=== PATIENT | female | born 1965 | race Caucasian/White ===

== ENCOUNTER → 2020-11-28 13:57 | Outpatient (CLI) | payer MEDICAID, SELFPAY ==
[2020-11-28 15:05] LABS: Amphetamine/Metha Screen,Urine Negative ng/ml (<1000); Cannabinoid Screen,Urine Negative ng/ml (<50)
[2020-11-28 15:06] LABS: Barbiturates Screen,Urine Negative ng/ml (<200); Benzodiazepines Screen,Urine Negative ng/ml (<200)
[2020-11-28 15:07] LABS: Cocaine Screen,Urine Negative ng/ml (<300)
[2020-11-28 15:08] LABS: Methadone Screen,Urine Negative ng/ml (<300); Opiate Screen,Urine Negative ng/ml (<300)
[2020-11-28 15:09] LABS: Phencyclidine Screen,Urine Negative ng/ml (<25)
== END ==
PROVIDERS: Visit Provider Emergency Medicine
DX: M54.5 Low back pain (principal)
CPT/HCPCS: 80305

== ENCOUNTER → 2020-12-19 14:25 | Outpatient (CLI) | payer MEDICAID, SELFPAY ==
--- NOTE | 2020-12-19 14:25 | CA_ITS ---
APPROVED REPORT EXAM: Comprehensive 2D, Doppler, and color-flow Echocardiogram Manager Relationship: HUAN Rubio, RVS Ht: 5 ft 4 in Wt: 143lbs BSA: 1.70 HR: 89 bpm BP: 126/80 mmHg Rhythm: PVC's Indications: Cardiac arrythmia, murmurs, COPD, smoker, anxiety, s/p left mastectomy w/chemotherapy Echo Enhancing Agent Comments: Technically limited acoustic windows due to patient pain intolerance to left chest 2D Dimensions IVSd 0.90 cm LVEF (Visual) 81.90 % PWd 0.85 cm LA Volume 55.80 mL LVDd 4.12 cm LA Volume Index 32.80 mL/m2 (M/F) 16-34 LVDs 2.05 cm Aortic Root 2.72 cm Left Atrium 2.78 cm LVOT 2.05 cm (M/F) 1.5-2.5 M-Mode Dimensions LA Diam 3.88 cm (1.9-4.0) LVDd 5.16 cm (3.5-5.7) Ao Diam 2.54 cm (2.0-3.7) LVDs 3.47 cm (3.5-5.7) EF (Teich) 60.80% EPSs 1.19 cm FS 32.80% EDV (Teich) 127.20 mL TAPSE 1.78 (<1.7) ESV (Teich) 49.80 mL LV Diastology E Decel Time 150.00 (160-240 msec) E/A Ratio 0.89 MED E' 11.30 (< 7 cm/sec) MED A' 11.60 cm/s E'/MED E' Ratio 13.90 (>14) LAT E' 12.70 (<10 cm/sec) LAT A' 9.50 cm/s E/LAT E' Ratio 12.37 (>14) Aortic Valve LVOT Max 90.00 (70-110 cm/s) LVOT VTI 20.33 cm AoV Peak Kuldeep. 210.00 (50-130 cm/s) AO Peak GR. 17.70 mmHg AO Mean GR. 8.00 (<5 mmHg) AO VTI 43.19 (18-25 cm) LORRIE (VTI) 1.55 (2.5-4.5 cm2) Mitral Valve MV A Velocity 176.00 (40-130 cm/s) E/A Ratio 0.89 MV Decel. Time 150.00 (160-240 ms) Pulmonary Valve PV Peak Velocity 87.00 (50-150 cm/s) Tricuspid Valve TR P. Velocity 452.00 cm/s RAP Estimate 10.00 mmHg RVSP 91.90 mmHg Left Ventricle Left atrium is mildly enlarged, left ventricle is normal size, there is no concentric left ventricular hypertrophy, visually estimated ejection fraction 55% with no regional wall motion abnormality, diastolic parameters are within normal range. Right Ventricle Right atrium and right ventricle mildly enlarged with normal contractility. Aortic Valve Aortic valve is minimally thickened and fibrosed, there is no aortic stenosis or aortic insufficiency. Mitral Valve Mitral valve leaflets are grossly normal, there is mild mitral regurgitation. Tricuspid Valve Tricuspid grossly normal, there is mild tricuspid regurgitation, calculated right ventricular systolic pressure is 31 mmHg assuming right atrial pressure 10 mmHg. Pulmonic Valve Pulmonic valve is poorly visualized. There is mild pulmonic insufficiency. Great Vessels Aortic root is normal size. Pericardium No significant pericardial effusion noted. Conclusion 1. Mild biatrial normal, normal left ventricular size, preserved left ventricular systolic function, visually estimated ejection fraction 55% with no regional wall motion abnormality, diastolic parameters are within normal range. 2. Mild mitral and tricuspid regurgitation, calculated right ventricular systolic pressure 31 mmHg assuming right atrial pressure 10 mmHg 3. No significant pericardial effusion noted. Electronically signed by : Archie Conrad, 12/19/2020 18:43:58
== END ==
PROVIDERS: PCP Emergency Medicine; Visit Provider Emergency Medicine
DX: R01.1 Cardiac murmur, unspecified (principal)
CPT/HCPCS: 93306

== ENCOUNTER → 2021-01-04 06:48 | Outpatient (CLI) | payer MEDICAID, SELFPAY ==
--- NOTE | 2021-01-04 06:49 | CA_ITS ---
APPROVED REPORT [place]: JACQUES/ISMAEL Laterality: Bilateral Study Quality: Excellent Indications: dizziness, Bilateral Bruit Risk Factors Hypertension: Smoking Doppler Spectral Velocity Analysis ECA (R) 86.80/23.20 cm/s ECA (L) 107.00/25.40 cm/s dICA (R) 101.10/36.00 cm/s dICA (L) 116.90/50.70 cm/s Jocelin (R) 107.70/43.40 cm/s Jocelin (L) 77.70/30.20 cm/s pICA (R) 74.10/29.20 cm/s pICA (L) 69.30/23.10 cm/s dCCA (R) 70.30/26.90 cm/s dCCA (L) 74.80/26.20 cm/s pCCA (R) 95.10/29.10 cm/s pCCA (L) 84.50/28.40 cm/s Vert (R) 66.00/17.10 cm/s Vert (L) 69.30/21.80 cm/s ICA/CCA 1.50 ICA/CCA 1.50 Findings Duplex evaluation demonstrates stenosis of the right proximal internal carotid artery in the range of 20-49%. Duplex evaluation demonstrates stenosis of the left proximal internal carotid artery in the range of 20-49%. Duplex evaluation demonstrates antegrade flow of the bilateral Vertebral Arteries. Conclusion Duplex evaluation demonstrates stenosis of the right proximal internal carotid artery in the range of 20-49%. Duplex evaluation demonstrates stenosis of the left proximal internal carotid artery in the range of 20-49%. Duplex evaluation demonstrates antegrade flow of the bilateral Vertebral Arteries. Electronically signed by : Kamlesh Croft MD 01/04/2021 15:23:35
--- NOTE | 2021-01-04 06:49 | NM_ITS ---
APPROVED REPORT Exam: Nuclear Stress Test Indication: chest pain..short of breath..fatigue Patient Location: Outpatient Stress Tech: Rosana PASTRANA Tech:Naa RainTRACI young RT(R)(N) Ht: 5 ft 4 in Wt: 143 lbs Bra Size: 32 b HR: 62 bpm BP: 155/91 mmHg BSA: 1.70 m2 BMI: 24.5 History: chest pain..short of breath..fatigue Procedure: Patient received a 0.4 mg of intravenous Lexiscan, resting heart rate 62 bpm, resting blood pressure 155/91 mmHg, with Lexiscan maximum heart rate achived was 83 bpm which is 85 % of the maximum predicted heart rate and blood pressure was 147/80 mmHg. With Lexiscan, patient denied any complaint of chest pain. Cardiac Stress and Resting SPECT Images: Cardiac Stress and Resting SPECT images were obtained using technetium 99m Myoview 33.0 mCi stress and 10.92 mCi at rest. Ejection fraction: 48% No fixed or reversible defects. Conclusion: Low ejection fraction with no ischemic changes. Electronically signed by : Kamlesh Croft MD 01/05/2021 14:27:01
--- NOTE | 2021-01-04 06:49 | CA_ITS ---
APPROVED REPORT Exam: Pharmacologic Technologist: Rosana New, Ht: 5 ft 4 in Wt: 142 lbs BSA: 1.69 m2 HR: 62 bpm BP: 155/91 mmHg Rhythm: NSR, normal Medical History Medical History: Smoking Medications: Omeprazole,,,,, Spiriva,,,,, Gabapentin,,,,, PERCOCET,,,,, ANoro,,,,, ONdanESETRAN,,,,, ANASTROZOLE,,,,, Cardiac Risk Factors: FHX of CAD Stress Test Details Test: LEXISCAN HR Resting HR: 65 bpm Max Heart Rate (APMHR): 163.680180 bpm Max HR Achieved: 85 bpm Target HR (85% APMHR): 138.601777 bpm % of APMHR: 52.15 Recovery HR: 79 bpm BP Resting BP: 155/91 mmHg Max BP: 155/91 mmHg Recovery BP: 152.0/87.0 mmHg ECG Resting ECG: NSR, normal Clinical Exercise duration: 04:01 min Highest Stage Achieved: Exercise capacity: 1.0 METs Stress ECG Conclusion During lexiscan pt experinced SOA, headache, stomach cramps, NO CP. Pt had occasional PVCs. No significant changes to ST- segment. Unremarkable lexiscan stress, myoview images reported separately. Electronically signed by : Olvin Moscoso, 01/05/2021 12:46:05
== END ==
PROVIDERS: PCP Emergency Medicine; Visit Provider Internal Medicine Cardiovascular Disease
DX: R06.00 Dyspnea, unspecified (principal); R07.9 Chest pain, unspecified; R42 Dizziness and giddiness; J44.9 Chronic obstructive pulmonary disease, unspecified; K21.9 Gastro-esophageal reflux disease without esophagitis; Z72.0 Tobacco use; Z85.3 Personal history of malignant neoplasm of breast
CPT/HCPCS: 78452; 93017; 93880; A9502; J2785

== ENCOUNTER → 2021-01-18 09:08 | Outpatient (CLI) | payer MEDICAID, SELFPAY ==
[2021-01-18 10:27] LABS: NT Pro Brain Natriuretic Pep. 697 pg/mL (0-125)
== END ==
PROVIDERS: Visit Provider Internal Medicine Cardiovascular Disease
DX: R06.00 Dyspnea, unspecified (principal)
CPT/HCPCS: 36415; 83880

== ENCOUNTER → 2021-01-23 13:43 | Outpatient (CLI) | payer MEDICAID, SELFPAY ==
[2021-01-23 14:43] LABS: Amphetamine/Metha Screen,Urine Negative ng/ml (<1000); Barbiturates Screen,Urine Negative ng/ml (<200)
[2021-01-23 14:45] LABS: Benzodiazepines Screen,Urine Positive ng/ml (<200); Cannabinoid Screen,Urine Negative ng/ml (<50)
[2021-01-23 14:46] LABS: Cocaine Screen,Urine Negative ng/ml (<300)
[2021-01-23 14:47] LABS: Methadone Screen,Urine Negative ng/ml (<300); Opiate Screen,Urine Positive ng/ml (<300)
[2021-01-23 14:48] LABS: Phencyclidine Screen,Urine Negative ng/ml (<25)
== END ==
PROVIDERS: Visit Provider Emergency Medicine
DX: M54.16 Radiculopathy, lumbar region (principal)
CPT/HCPCS: 80305

== ENCOUNTER → 2021-01-29 14:22 | Outpatient (CLI) | payer MEDICAID, SELFPAY ==
--- NOTE | 2021-01-29 14:26 | CT_ITS ---
PROCEDURE: CT LUNG SCREENING CLINICAL INDICATION: H/O NICOTINE DEPENDENCE Current smoker 67.5 pack year smoking history Hx of breast cancer, copd, emphysema, chf No prior COMPARISON: No exams were available for comparison TECHNIQUE: The exam was performed on a GE Light Speed [address] scanner using 2.90 mGy CTDI. A low dose helical CT CHEST was performed on a multi-detector scanner. All CT scans at the facility use one or more dose reduction, viz: automated exposure control, ma/kV adjustment per patient size (including targeted exams where dose is matched to indication, i.e. head), or iterative reconstruction technique. The LDCT was performed in a facility that meets the criteria for the screening program. Data regarding this exam was submitted to ACR which is an approved registry. The order for this exam indicates that it came as a result of a lung cancer screening counseling shard decision-making visit that included all the elements required of such a visit including smoking cessation. The radiologist interpreting this exam meets the CMS criteria for the LDCT lung cancer screening program. The exam is reported using the Lung-RADS classification scale and reported to the ACR registry. NOTE: This study was performed for the specific purposes of lung cancer screening and is not an alternative to diagnostic chest CT. RADIATION DOSE: CTDI vol(CT dose Index-volume) = 2.90mG DLP (Dose Length Product) = 96.38 mGcm FINDINGS: There is dense consolidation the left with air bronchograms. Paraseptal emphysematous changes are present with COPD. There is some increased density in the left suprahilar region possibly due to unopacified vessels. Fibrotic changes are present in the lingula anteriorly. No effusions apparent. Coronary artery calcifications noted. No obvious mediastinal or hilar adenopathy. No effusions. Prior left mastectomy IMPRESSION: Lung-RADS Category 3 Probably Benign. Dense consolidation in the left apex age indeterminate. Follow-up: [address] Chest with contrast. Suggest comparison with old studies if available. No old images of the chest are available at this institution. Dictated by: Kamlesh Croft MD 02/05/2021 06:29 Kamlesh Croft MD in [place] 02/05/2021 06:29
== END ==
PROVIDERS: PCP Emergency Medicine; Visit Provider Internal Medicine Cardiovascular Disease
DX: Z87.891 Personal history of nicotine dependence (principal); Z12.2 Encounter for screening for malignant neoplasm of respiratory organs; R06.02 Shortness of breath
CPT/HCPCS: 71271

== ENCOUNTER → 2021-02-15 10:26 | Outpatient (CLI) | payer MEDICAID, SELFPAY ==
--- NOTE | 2021-02-15 10:29 | CA_ITS ---
APPROVED REPORT Bilateral Lower Extremity Venous Study for DVT. Machine Setter Supervisor: Bee Leigh RVT Indications Lower Extremity Pain: Bilateral Current Smoker History of Smoking bilateral leg pain Risk Factors Current Smoker Vein Imaging CFV (R): compressive, spontaneous, phasic, augmentation FEM (R): compressive, spontaneous, phasic, augmentation POP (R): compressive, spontaneous, phasic, augmentation PTV (R): Compressible GSV (R): Compressible Peroneals (R):Compressible GAS (R): Compressible CFV (L): compressive, spontaneous, phasic, augmentation FEM (L): compressive, spontaneous, phasic, augmentation POP (L): compressive, spontaneous, phasic, augmentation PTV (L): Compressible GSV (L): Compressible Peroneals (L):Compressible GAS (L): Compressible Findings Study suggests no evidence of DVT of the bilateral lower extremites. Study suggests a thrombus in a superficial vein in the medial left ankle. Conclusion Study suggests no evidence of DVT of the bilateral lower extremites. Study suggests a thrombus in a superficial vein in the medial left ankle. Critical Notification Physician Notified Date: 02/15/2021 Time: 11:07 Physician Name: SACHIN Electronically signed by : Shasta Sweet, 02/16/2021 11:59:36
== END ==
PROVIDERS: PCP Emergency Medicine; Visit Provider Physician Assistant
DX: M79.604 Pain in right leg (principal); M79.605 Pain in left leg
CPT/HCPCS: 93970

== ENCOUNTER → 2021-02-20 11:37 | Outpatient (CLI) | payer MEDICAID, SELFPAY | PROVIDERS: PCP Emergency Medicine; Visit Provider Internal Medicine Cardiovascular Disease | DX: I70.213 Atherosclerosis of native arteries of extremities with intermittent claudication, bilateral legs (principal) ==

== ENCOUNTER → 2021-03-21 15:17 | Outpatient (CLI) | payer MEDICAID, SELFPAY ==
[2021-03-21 16:04] LABS: Amphetamine/Metha Screen,Urine Negative ng/ml (<1000)
[2021-03-21 16:05] LABS: Barbiturates Screen,Urine Negative ng/ml (<200)
[2021-03-21 16:06] LABS: Benzodiazepines Screen,Urine Positive ng/ml (<200); Cannabinoid Screen,Urine Negative ng/ml (<50)
[2021-03-21 16:07] LABS: Cocaine Screen,Urine Negative ng/ml (<300); Methadone Screen,Urine Negative ng/ml (<300)
[2021-03-21 16:08] LABS: Opiate Screen,Urine Negative ng/ml (<300)
[2021-03-21 16:09] LABS: Phencyclidine Screen,Urine Negative ng/ml (<25)
== END ==
PROVIDERS: Visit Provider Emergency Medicine
DX: Z79.899 Other long term (current) drug therapy (principal)
CPT/HCPCS: 80305

== ENCOUNTER → 2021-03-29 13:21 | Outpatient (CLI) | payer MEDICAID, SELFPAY ==
[2021-03-29 13:42] LABS: Amphetamine/Metha Screen,Urine Negative ng/ml (<1000)
[2021-03-29 13:43] LABS: Barbiturates Screen,Urine Negative ng/ml (<200)
[2021-03-29 13:44] LABS: Benzodiazepines Screen,Urine Positive ng/ml (<200); Cannabinoid Screen,Urine Negative ng/ml (<50)
[2021-03-29 13:45] LABS: Cocaine Screen,Urine Negative ng/ml (<300); Methadone Screen,Urine Negative ng/ml (<300)
[2021-03-29 13:46] LABS: Opiate Screen,Urine Positive ng/ml (<300)
[2021-03-29 13:47] LABS: Phencyclidine Screen,Urine Negative ng/ml (<25)
== END ==
PROVIDERS: Visit Provider Emergency Medicine
DX: M10.9 Gout, unspecified (principal)
CPT/HCPCS: 80305

== ENCOUNTER → 2021-04-10 12:57 | Outpatient (CLI) | payer MEDICAID, SELFPAY ==
--- NOTE | 2021-04-10 13:13 | CT_ITS ---
Procedure: CT ANGIO ABDOMEN/FEMORAL CLINICAL HISTORY: runoff of LE's Bilateral leg pain COMPARISON: No exams were available for comparison TECHNIQUE: IV Contrast: 100ml Isovue 370 Axial images obtained with sagittal and coronal reformats. All CT scans at the facility use one or more dose reduction, viz: automated exposure control, ma/kV adjustment per patient size (including targeted exams where dose is matched to indication, i.e. head), or iterative reconstruction technique. FINDINGS: Abdominal aorta: Scattered atheromatous plaque. No aneurysm or significant stenosis. The celiac artery has an unremarkable appearance. There is approximately 30-40 percent stenosis of the proximal aspect of the superior mesenteric artery with mild poststenotic dilatation. The KEEGAN is intact. Unremarkable appearing renal arteries Iliac arteries: Calcific plaque is present bilaterally. No significant stenosis. Proximally forty to 50 percent stenosis of the proximal right common iliac and 30-40 percent stenosis of proximal left common iliac. External iliacs have an unremarkable appearance. Right lower extremity runoff: 20 percent stenosis from eccentric plaque in the right common femoral artery. The SFA on the right is widely patent. Right popliteal is unremarkable. Trifurcation vessels unremarkable with 3 vessel runoff to ankle with plantar arch intact. Left lower extremity runoff: Mild atheromatous changes of the common femoral artery with 20 percent narrowing. Minimal eccentric plaque in the distal left SFA with 20 percent narrowing. The left popliteal and trifurcation vessels are unremarkable with 3 vessel runoff to the ankle with patent plantar arch Nonvascular findings: IMPRESSION: 1. Mild atheromatous changes of the aortic iliac vessels with calcific plaque. 30-40 percent stenosis of the proximal common iliacs bilaterally.. No high-grade stenotic lesions evident. Unremarkable bilateral lower extremity runoff. 2. 50 percent stenosis of the proximal superior mesenteric artery. Dictated by: Kamlesh Croft MD 04/12/2021 10:30 Kamlesh Croft MD in [place] 04/12/2021 10:30
[2021-04-10 14:18] LABS: Anion Gap 12.4 mEq/L (5-15); Blood Urea Nitrogen 13 mg/dl (7-17); Calcium 8.9 mg/dl (8.4-10.2); Carbon Dioxide 30 mmol/L (22.0-30.0); Chloride 100 mmol/L (98-107); Estimated Glomerular Filt Rate 103 ml/min (>60); GFR (African American) 124 ML/MIN (>60); Glucose 97 mg/dl (74-100); Potassium 4.4 mmoL/L (3.5-5.1); Sodium 138 mmol/L (136-145)
[2021-04-10 14:27] LABS: NT Pro Brain Natriuretic Pep. 132 pg/mL (0-125)
== END ==
PROVIDERS: Physician Assistant; PCP Emergency Medicine; Visit Provider Internal Medicine Cardiovascular Disease
DX: R06.00 Dyspnea, unspecified (principal); R42 Dizziness and giddiness; I25.10 Atherosclerotic heart disease of native coronary artery without angina pectoris; I25.84 Coronary atherosclerosis due to calcified coronary lesion; R05 Cough; I10 Essential (primary) hypertension; I73.9 Peripheral vascular disease, unspecified; I82.812 Embolism and thrombosis of superficial veins of left lower extremity; J44.9 Chronic obstructive pulmonary disease, unspecified; K21.9 Gastro-esophageal reflux disease without esophagitis; M79.604 Pain in right leg; M79.605 Pain in left leg; Z72.0 Tobacco use; Z85.3 Personal history of malignant neoplasm of breast
CPT/HCPCS: 36415; 75635; 80048; 83880; Q9967

== ENCOUNTER → 2021-05-14 14:09 | Outpatient (CLI) | payer MEDICAID, SELFPAY ==
[2021-05-14 15:00] LABS: Amphetamine/Metha Screen,Urine Negative ng/ml (<1000)
[2021-05-14 15:01] LABS: Barbiturates Screen,Urine Negative ng/ml (<200)
[2021-05-14 15:02] LABS: Benzodiazepines Screen,Urine Positive ng/ml (<200); Cannabinoid Screen,Urine Negative ng/ml (<50)
[2021-05-14 15:03] LABS: Cocaine Screen,Urine Negative ng/ml (<300)
[2021-05-14 15:04] LABS: Methadone Screen,Urine Negative ng/ml (<300); Opiate Screen,Urine Positive ng/ml (<300)
[2021-05-14 15:05] LABS: Phencyclidine Screen,Urine Negative ng/ml (<25)
== END ==
PROVIDERS: Visit Provider Emergency Medicine
DX: G62.9 Polyneuropathy, unspecified (principal); Z79.899 Other long term (current) drug therapy
CPT/HCPCS: 80305

== ENCOUNTER → 2021-06-01 08:55 | Outpatient (CLI) | payer MEDICAID, SELFPAY ==
[2021-06-01 09:33] LABS: Basophils # 0.1 K/mm3 (0-0.2); Basophils % 1.5 % (0.1-2.0); Eosinophils # 0.3 K/mm3 (0.0-0.4); Eosinophils % 5.5 % (0.1-12.0); Hematocrit 48.5 % (37.0-47.0); Hemoglobin 15.4 g/dL (12.2-16.2); Lymphocytes # 1.4 K/mm3 (0.7-4.5); Lymphocytes % 30.3 % (10-50); Mean Corpuscular HGB Conc 31.8 g/dL (31.8-35.4); Mean Corpuscular Hemoglobin 30.8 pg (27.0-31.2); Mean Corpuscular Volume 96.9 fl (81-99); Mean Platelet Volume 8.2 fl (7.4-10.4); Monocytes # 0.2 K/mm3 (0.1-1.0); Monocytes % 4.5 % (1.7-9.3); Neutrophils # 2.7 K/mm3 (1.8-7.8); Neutrophils % 58.2 % (37.0-80.0); Platelet Count 203 K/mm3 (142-424); Red Cell Distribution Width 13.9 % (11.5-17.5); White Blood Count 4.6 K/mm3 (4.8-10.8)
[2021-06-01 10:07] LABS: Alanine Aminotransferase 15 U/L (12-78); Albumin Level 4.5 g/dl (3.5-5.0); Albumin/Globulin Ratio 1.6 (1.1-1.8); Alkaline Phosphatase 80 U/L (38-126); Anion Gap 13.9 mEq/L (5-15); Aspartate Amino Transferase 27 U/L (14-36); Bilirubin,Total 0.3 mg/dl (0.2-1.3); Blood Urea Nitrogen 6 mg/dl (7-17); Calcium 9.4 mg/dl (8.4-10.2); Carbon Dioxide 28 mmol/L (22.0-30.0); Chloride 103 mmol/L (98-107); Chol/HDL Ratio 1.8 (1-3.5); Cholesterol 170 mg/dl (140-200); Estimated Glomerular Filt Rate 127 ml/min (>60); GFR (African American) 153 ML/MIN (>60); Globulin 2.8 g/dL (1.3-3.2); Glucose 124 mg/dl (74-100); HDL Cholesterol 94 mg/dl (40-60); Potassium 3.9 mmoL/L (3.5-5.1); Sodium 141 mmol/L (136-145); Total Protein,Serum 7.3 g/dl (6.3-8.2); Triglycerides 85 mg/dl (30-150); VLDL Cholesterol 17 mg/dL (0-40)
[2021-06-01 10:18] LABS: Direct LDL Cholesterol 54.72 mg/dL (100-129)
[2021-06-01 10:23] LABS: T4 (Thyroxine) 8.4 ug/dl (5.53-11.0)
[2021-06-01 10:24] LABS: 25-OH Vitamin D, Total 40.2 ng/mL (30-100)
[2021-06-01 10:37] LABS: Thyroid Stimulating Hormone 0.91 uIU/mL (0.465-4.68)
== END ==
PROVIDERS: Visit Provider Emergency Medicine
DX: I10 Essential (primary) hypertension (principal); Z79.899 Other long term (current) drug therapy
CPT/HCPCS: 36415; 80053; 80061; 82306; 84436; 84443; 85025

== ENCOUNTER → 2021-07-13 18:30 | Outpatient (CLI) | payer MEDICAID, SELFPAY ==
[2021-07-13 19:45] LABS: Amphetamine/Metha Screen,Urine Negative ng/ml (<1000)
[2021-07-13 19:46] LABS: Barbiturates Screen,Urine Negative ng/ml (<200)
[2021-07-13 19:47] LABS: Benzodiazepines Screen,Urine Positive ng/ml (<200); Cannabinoid Screen,Urine Negative ng/ml (<50)
[2021-07-13 19:48] LABS: Cocaine Screen,Urine Negative ng/ml (<300)
[2021-07-13 19:49] LABS: Methadone Screen,Urine Negative ng/ml (<300); Opiate Screen,Urine Positive ng/ml (<300)
[2021-07-13 19:50] LABS: Phencyclidine Screen,Urine Negative ng/ml (<25)
== END ==
PROVIDERS: Visit Provider Emergency Medicine
DX: Z79.899 Other long term (current) drug therapy (principal)
CPT/HCPCS: 80305

== ENCOUNTER → 2021-09-12 14:49 | Outpatient (CLI) | payer MEDICAID, SELFPAY ==
[2021-09-12 13:43] LABS: Amphetamine/Metha Screen,Urine Negative ng/ml (<1000); Barbiturates Screen,Urine Negative ng/ml (<200)
[2021-09-12 13:44] LABS: Benzodiazepines Screen,Urine Positive ng/ml (<200); Cannabinoid Screen,Urine Negative ng/ml (<50)
[2021-09-12 13:45] LABS: Cocaine Screen,Urine Negative ng/ml (<300)
[2021-09-12 13:46] LABS: Methadone Screen,Urine Negative ng/ml (<300); Opiate Screen,Urine Positive ng/ml (<300)
[2021-09-12 13:47] LABS: Phencyclidine Screen,Urine Negative ng/ml (<25)
== END ==
PROVIDERS: Visit Provider Emergency Medicine
DX: Z79.899 Other long term (current) drug therapy (principal)
CPT/HCPCS: 80305

== ENCOUNTER → 2021-11-06 16:25 | Outpatient (CLI) | payer MEDICAID, SELFPAY ==
[2021-11-06 18:40] LABS: Amphetamine/Metha Screen,Urine Negative ng/ml (<1000)
[2021-11-06 18:41] LABS: Barbiturates Screen,Urine Negative ng/ml (<200)
[2021-11-06 18:42] LABS: Benzodiazepines Screen,Urine Positive ng/ml (<200); Cannabinoid Screen,Urine Negative ng/ml (<50)
[2021-11-06 18:43] LABS: Cocaine Screen,Urine Negative ng/ml (<300); Methadone Screen,Urine Negative ng/ml (<300)
[2021-11-06 18:44] LABS: Opiate Screen,Urine Positive ng/ml (<300)
[2021-11-06 18:45] LABS: Phencyclidine Screen,Urine Negative ng/ml (<25)
== END ==
PROVIDERS: Visit Provider Emergency Medicine
DX: Z79.899 Other long term (current) drug therapy (principal)
CPT/HCPCS: 80305

== ENCOUNTER → 2022-01-04 14:20 | Outpatient (CLI) | payer MEDICAID, SELFPAY ==
[2022-01-04 16:00] LABS: Amphetamine/Metha Screen,Urine Negative ng/ml (<1000)
[2022-01-04 16:02] LABS: Barbiturates Screen,Urine Negative ng/ml (<200)
[2022-01-04 16:03] LABS: Benzodiazepines Screen,Urine Positive ng/ml (<200); Cannabinoid Screen,Urine Positive ng/ml (<50)
[2022-01-04 16:05] LABS: Opiate Screen,Urine Positive ng/ml (<300)
[2022-01-04 16:06] LABS: Cocaine Screen,Urine Negative ng/ml (<300); Methadone Screen,Urine Negative ng/ml (<300)
[2022-01-04 16:08] LABS: Phencyclidine Screen,Urine Negative ng/ml (<25)
== END ==
PROVIDERS: Visit Provider Emergency Medicine
DX: Z79.899 Other long term (current) drug therapy (principal)
CPT/HCPCS: 80305

== ENCOUNTER → 2022-01-11 09:37 | Outpatient (CLI) | payer MEDICAID, SELFPAY ==
--- NOTE | 2022-01-11 09:38 | MR_ITS ---
FINAL REPORT CLINICAL HISTORY: LOWER BACK PAIN, STIFFNESS, NO INJURY FINDINGS: Multiplanar MR imaging of the lumbar spine was performed without contrast. On the sagittal T2-weighted images, disc degeneration is seen at multiple levels. There is mild retrolisthesis of L5 on S1. There is no evidence of fracture. The conus has an unremarkable appearance. There is a small cyst in the mid sacral spinal canal. L1-2: There is no significant canal stenosis or neural foraminal narrowing. L2-3: An annular bulge is present. There is no significant canal stenosis or neural foraminal narrowing. L3-4: Annular bulge is present. There is a small central disc protrusion. There is no significant canal stenosis or neural foraminal narrowing. L4-5: An annular bulge and facet arthropathy are present. There is a small central disc protrusion mild bilateral neural foraminal narrowing. L5-S1: An annular bulge is present. There is a central disc protrusion moderate bilateral neural foraminal narrowing. IMPRESSION: Multilevel degenerative disc disease and spondylosis. Central disc protrusions from L3-4 through L5-S1. Reviewed, Interpreted and Dictated by Roque Briggs III, MD Transcribed by Elizabeth Ceja Authenticated and . [facility]
== END ==
PROVIDERS: Visit Provider Emergency Medicine
DX: G95.19 Other vascular myelopathies (principal); M54.16 Radiculopathy, lumbar region
CPT/HCPCS: 72148; 76376

== ENCOUNTER → 2022-03-06 19:13 | Outpatient (CLI) | payer MEDICAID, SELFPAY ==
[2022-03-06 16:13] LABS: Benzodiazepines Screen,Urine Positive ng/ml (<200)
[2022-03-06 16:14] LABS: Amphetamine/Metha Screen,Urine Negative ng/ml (<1000); Barbiturates Screen,Urine Negative ng/ml (<200)
[2022-03-06 16:15] LABS: Cannabinoid Screen,Urine Positive ng/ml (<50); Cocaine Screen,Urine Negative ng/ml (<300)
[2022-03-06 16:16] LABS: Methadone Screen,Urine Negative ng/ml (<300)
[2022-03-06 16:17] LABS: Opiate Screen,Urine Positive ng/ml (<300); Phencyclidine Screen,Urine Negative ng/ml (<25)
== END ==
PROVIDERS: PCP Emergency Medicine; Visit Provider Emergency Medicine
DX: M54.16 Radiculopathy, lumbar region (principal)
CPT/HCPCS: 80305

== ENCOUNTER → 2022-03-27 10:10 | Outpatient (POV) | payer MEDICAID, SELFPAY ==
[2022-03-27 10:29] VITALS: BP 170/84; PULSE 81; RESP 20; TEMP 36.6; O2SAT 96; BMI 18.8
--- NOTE | 2022-03-27 17:36 | EXP.PAIN.OV ---
HPI Data of Consult Patient: new to practice Consult date: 03/27/22 Requesting Physician: Danita Dixon APRN Primary Care Provider: Max Contreras MD Consult Narrative Reason for consult: Low back pain, bilateral leg pain History of present illness: Ms. Aaron is a 57 year old female who presents today as a new patient. She is a referral from Max Contreras. Patient rates her pain a 9 out of 10 and states the pain is primarily in her low back that radiates into bilateral extremities. She describes this as a aching sensation that was worse with increased activity. Patient states she has numbness and tingling in bilateral legs. Patient denies any trauma or injury to the site. She states she has had these issues for years. Patient does use [id number] Tylenol and ibuprofen however she gets no relief of her symptoms. She is also tried [id number] topicals however these do not provide any additional aid. She is managed with gabapentin 800 mg 3 times a day, clonazepam 0.5 mg twice a day and Percocet 10 mg 3 times a day all written by Dr. Contreras. Patient denies any side effects from these medications. She states these medications do adequately help manage her pain. Patient states she has not seen physical therapy in the past. She states she is scheduled to see neurosurgery next month. Patient also has PET scan scheduled for her lungs. Her Héctor is [id number]. Its been reviewed and appropriate. CC: Danita Dixon APRN [facility] Medical History (Updated 03/27/22 @ 17:42 by Danita Dixon APRN) Breast cancer Cataract Chest pain Claudication COPD (chronic obstructive pulmonary disease) Coronary artery disease Dizziness Dyspnea Hyperlipidemia Hypertension Superficial thrombosis of left lower extremity Surgical History (Updated 03/27/22 @ 10:35 by Helga Delong RN) History of History of left mastectomy History of surgical removal of intestinal structure Social History Smoking Status: Current every day smoker tobacco type: cigarettes packs per day: 1 alcohol intake: never substance use type: denies use current occupational status: disabled household members: family housing: house Review of Systems Review of Systems Review of systems:: pertinent systems reviewed and negative unless documented below Review of systems (narrative): Review of Systems: General: No recent weight changes, no fever, no sleep disturbances Respiratory: No cough, no shortness of air, no recurring pulmonary infections Cardiovascular/peripheral vascular: No chest pain, no palpitations, no edema, no shortness of breath Gastrointestinal: No new onset incontinence, normal bowel movements reported Genitourinary: No new onset incontinence Musculoskeletal: Low back pain, bilateral leg pain Psychiatric: [Normal mood/affect] Neurological: [Denies weakness in extremities], [denies balance issues] Meds Home Medications and Allergies Home Medications Medication Instructions Recorded Confirmed Type ondansetron 4 mg disintegrating 4 mg PO Q6H STOMACH 10/03/20 03/27/22 History tablet tiotropium bromide 2.5 2 puff inhalation DAILY PRN SOA #4 02/27/22 03/27/22 Rx mcg/actuation mist for inhalation grams (Spiriva Respimat) oxycodone-acetaminophen 10 mg-325 1 tab PO TID PRN pain #90 tabs 03/06/22 03/27/22 Rx mg tablet (Percocet) anastrozole 1 mg tablet See Rx Instructions .Route 03/27/22 03/27/22 History .COMPLEX CHEMO aspirin 325 mg tablet,delayed See Rx Instructions .Route 03/27/22 03/27/22 History release .COMPLEX Blood thinner clonazepam 0.5 mg tablet (Klonopin) 0.5 mg PO BID NERVES 03/27/22 03/27/22 History gabapentin 800 mg tablet 800 mg PO TID Pain 03/27/22 03/27/22 History losartan 25 mg tablet 25 mg PO DAILY BLOOD PRESSURE 03/27/22 03/27/22 History omeprazole 40 mg capsule,delayed See Rx Instructions .Route 03/27/22 03/27/22 History release .COMPLEX STOMACH rosuvastatin 10 mg tablet See
== END ==
PROVIDERS: PCP Emergency Medicine; Visit Provider Nurse Practitioner Family
DX: M51.16 Intervertebral disc disorders with radiculopathy, lumbar region (principal); M48.061 Spinal stenosis, lumbar region without neurogenic claudication; M47.26 Other spondylosis with radiculopathy, lumbar region
CPT/HCPCS: 99202; G0463

== ENCOUNTER → 2022-05-03 11:08 | Outpatient (CLI) | payer MEDICAID, SELFPAY ==
[2022-05-03 15:38] LABS: Amphetamine/Metha Screen,Urine Negative ng/ml (<1000)
[2022-05-03 15:39] LABS: Barbiturates Screen,Urine Negative ng/ml (<200)
[2022-05-03 15:40] LABS: Benzodiazepines Screen,Urine Positive ng/ml (<200)
[2022-05-03 15:41] LABS: Cannabinoid Screen,Urine Positive ng/ml (<50)
[2022-05-03 15:42] LABS: Cocaine Screen,Urine Negative ng/ml (<300); Methadone Screen,Urine Negative ng/ml (<300)
[2022-05-03 15:43] LABS: Opiate Screen,Urine Positive ng/ml (<300)
[2022-05-03 15:44] LABS: Phencyclidine Screen,Urine Negative ng/ml (<25)
== END ==
PROVIDERS: PCP Emergency Medicine; Visit Provider Emergency Medicine
DX: M47.816 Spondylosis without myelopathy or radiculopathy, lumbar region (principal)
CPT/HCPCS: 80305

== ENCOUNTER → 2022-07-01 10:48 | Outpatient (CLI) | payer MEDICAID, SELFPAY ==
[2022-07-01 14:45] LABS: Amphetamine/Metha Screen,Urine Negative ng/ml (<1000); Barbiturates Screen,Urine Negative ng/ml (<200)
[2022-07-01 14:46] LABS: Benzodiazepines Screen,Urine Positive ng/ml (<200)
[2022-07-01 14:47] LABS: Cannabinoid Screen,Urine Positive ng/ml (<50); Cocaine Screen,Urine Negative ng/ml (<300)
[2022-07-01 14:48] LABS: Methadone Screen,Urine Negative ng/ml (<300)
[2022-07-01 14:49] LABS: Opiate Screen,Urine Positive ng/ml (<300); Phencyclidine Screen,Urine Negative ng/ml (<25)
== END ==
PROVIDERS: PCP Emergency Medicine; Visit Provider Emergency Medicine
DX: Z79.899 Other long term (current) drug therapy (principal)
CPT/HCPCS: 80305

== ENCOUNTER → 2022-08-30 11:27 | Outpatient (CLI) | payer MEDICAID, SELFPAY ==
[2022-08-30 19:12] LABS: Amphetamine/Metha Screen,Urine Negative ng/ml (<1000); Benzodiazepines Screen,Urine Positive ng/ml (<200)
[2022-08-30 19:13] LABS: Barbiturates Screen,Urine Negative ng/ml (<200)
[2022-08-30 19:14] LABS: Cannabinoid Screen,Urine Positive ng/ml (<50); Cocaine Screen,Urine Negative ng/ml (<300)
[2022-08-30 19:15] LABS: Methadone Screen,Urine Negative ng/ml (<300); Opiate Screen,Urine Positive ng/ml (<300)
[2022-08-30 19:16] LABS: Phencyclidine Screen,Urine Negative ng/ml (<25)
== END ==
PROVIDERS: PCP Emergency Medicine; Visit Provider Emergency Medicine
DX: M47.816 Spondylosis without myelopathy or radiculopathy, lumbar region (principal)
CPT/HCPCS: 80305

== ENCOUNTER → 2022-10-22 16:00 | Outpatient (CLI) | payer MEDICAID, SELFPAY ==
[2022-10-22 19:51] LABS: Basophils # 0.2 K/mm3 (0-0.2); Basophils % 1.7 % (0.1-2.0); Eosinophils # 0.2 K/mm3 (0.0-0.4); Eosinophils % 2.7 % (0.1-12.0); Hematocrit 45.2 % (37.0-47.0); Hemoglobin 14.2 g/dL (12.2-16.2); Lymphocytes # 0.9 K/mm3 (0.7-4.5); Lymphocytes % 10.4 % (10-50); Mean Corpuscular HGB Conc 31.4 g/dL (31.8-35.4); Mean Corpuscular Hemoglobin 29.7 pg (27.0-31.2); Mean Corpuscular Volume 94.3 fl (81-99); Mean Platelet Volume 8.9 fl (7.4-10.4); Monocytes # 0.4 K/mm3 (0.1-1.0); Neutrophils # 7.3 K/mm3 (1.8-7.8); Neutrophils % 81.2 % (37.0-80.0); Platelet Count 239 K/mm3 (142-424); Red Blood Count 4.79 M/mm3 (4.20-5.40); White Blood Count 8.9 K/mm3 (4.8-10.8)
[2022-10-22 20:00] LABS: Alanine Aminotransferase 14 U/L (12-78); Albumin Level 4.4 g/dl (3.5-5.0); Albumin/Globulin Ratio 1.2 (1.1-1.8); Alkaline Phosphatase 113 U/L (38-126); Anion Gap 12.2 mEq/L (5-15); Aspartate Amino Transferase 26 U/L (14-36); Bilirubin,Total 0.5 mg/dl (0.2-1.3); Blood Urea Nitrogen 10 mg/dl (7-17); Calcium 8.8 mg/dl (8.4-10.2); Carbon Dioxide 29 mmol/L (22.0-30.0); Chloride 98 mmol/L (98-107); Chol/HDL Ratio 2.4 (1-3.5); Cholesterol 156 mg/dl (140-200); Estimated Glomerular Filt Rate 126 ml/min (>60); GFR (African American) 153 ML/MIN (>60); Globulin 3.6 g/dL (1.3-3.2); Glucose 113 mg/dl (74-100); HDL Cholesterol 66 mg/dl (40-60); Potassium 4.2 mmoL/L (3.5-5.1); Sodium 135 mmol/L (136-145); Triglycerides 91 mg/dl (30-150); VLDL Cholesterol 18 mg/dL (0-40)
[2022-10-22 20:11] LABS: Direct LDL Cholesterol 51.44 mg/dL (100-129)
[2022-10-22 20:13] LABS: Barbiturates Screen,Urine Negative ng/ml (<200); Benzodiazepines Screen,Urine Positive ng/ml (<200)
[2022-10-22 20:14] LABS: Amphetamine/Metha Screen,Urine Negative ng/ml (<1000)
[2022-10-22 20:15] LABS: 25-OH Vitamin D, Total 17.3 ng/mL (30-100); Cannabinoid Screen,Urine Positive ng/ml (<50); Cocaine Screen,Urine Negative ng/ml (<300)
[2022-10-22 20:16] LABS: Methadone Screen,Urine Negative ng/ml (<300)
[2022-10-22 20:17] LABS: Free T4 (Free Thyroxine) 1.38 ng/dl (0.78-2.19); Phencyclidine Screen,Urine Negative ng/ml (<25)
[2022-10-22 20:30] LABS: Thyroid Stimulating Hormone 1.09 uIU/mL (0.465-4.68)
[2022-10-22 21:16] LABS: Opiate Screen,Urine Positive ng/ml (<300)
== END ==
PROVIDERS: PCP Emergency Medicine; Visit Provider Emergency Medicine
DX: R53.83 Other fatigue (principal); E55.9 Vitamin D deficiency, unspecified; Z79.899 Other long term (current) drug therapy
CPT/HCPCS: 80053; 80061; 80305; 82306; 84439; 84443; 85025

== ENCOUNTER → 2022-12-20 19:30 | Outpatient (CLI) | payer MEDICAID, SELFPAY ==
[2022-12-20 20:54] LABS: Amphetamine/Metha Screen,Urine Negative ng/ml (<1000); Barbiturates Screen,Urine Negative ng/ml (<200)
[2022-12-20 20:55] LABS: Benzodiazepines Screen,Urine Positive ng/ml (<200)
[2022-12-20 20:56] LABS: Cannabinoid Screen,Urine Negative ng/ml (<50); Cocaine Screen,Urine Negative ng/ml (<300)
[2022-12-20 20:57] LABS: Methadone Screen,Urine Negative ng/ml (<300); Opiate Screen,Urine Positive ng/ml (<300)
[2022-12-20 20:58] LABS: Phencyclidine Screen,Urine Negative ng/ml (<25)
== END ==
PROVIDERS: PCP Emergency Medicine; Visit Provider Emergency Medicine
DX: Z79.899 Other long term (current) drug therapy (principal)
CPT/HCPCS: 80305

== ENCOUNTER → 2023-01-22 09:55 | Outpatient (CLI) | payer MEDICAID, SELFPAY ==
[2023-01-22 15:05] LABS: Amphetamine/Metha Screen,Urine Positive ng/ml (<1000); Barbiturates Screen,Urine Negative ng/ml (<200)
[2023-01-22 15:06] LABS: Benzodiazepines Screen,Urine Positive ng/ml (<200)
[2023-01-22 15:08] LABS: Cocaine Screen,Urine Negative ng/ml (<300)
[2023-01-22 15:09] LABS: Methadone Screen,Urine Negative ng/ml (<300); Opiate Screen,Urine Positive ng/ml (<300)
[2023-01-22 15:10] LABS: Phencyclidine Screen,Urine Negative ng/ml (<25)
[2023-01-22 15:13] LABS: Cannabinoid Screen,Urine Positive ng/ml (<50)
== END ==
PROVIDERS: PCP Emergency Medicine; Visit Provider Emergency Medicine
DX: Z79.899 Other long term (current) drug therapy (principal)
CPT/HCPCS: 80305

== ENCOUNTER → 2023-02-17 23:00 | Outpatient (CLI) | payer MEDICAID, SELFPAY ==
[2023-02-17 19:15] LABS: Methadone Screen,Urine Negative ng/ml (<300)
[2023-02-17 19:16] LABS: Cocaine Screen,Urine Negative ng/ml (<300)
[2023-02-17 23:12] LABS: Benzodiazepines Screen,Urine Positive ng/ml (<200)
[2023-02-17 23:13] LABS: Amphetamine/Metha Screen,Urine Negative ng/ml (<1000)
[2023-02-17 23:14] LABS: Cannabinoid Screen,Urine Negative ng/ml (<50)
[2023-02-17 23:15] LABS: Opiate Screen,Urine Positive ng/ml (<300)
[2023-02-17 23:16] LABS: Phencyclidine Screen,Urine Negative ng/ml (<25)
[2023-02-18 00:14] LABS: Barbiturates Screen,Urine Negative ng/ml (<200)
== END ==
PROVIDERS: PCP Emergency Medicine; Visit Provider Emergency Medicine
DX: Z79.899 Other long term (current) drug therapy (principal)
CPT/HCPCS: 80305

== ENCOUNTER → 2023-03-18 15:40 | Outpatient (CLI) | payer MEDICAID, SELFPAY ==
[2023-03-18 14:42] LABS: Amphetamine/Metha Screen,Urine Negative ng/ml (<1000)
[2023-03-18 14:43] LABS: Barbiturates Screen,Urine Negative ng/ml (<200)
[2023-03-18 14:44] LABS: Benzodiazepines Screen,Urine Positive ng/ml (<200)
[2023-03-18 14:51] LABS: Cannabinoid Screen,Urine Negative ng/ml (<50); Cocaine Screen,Urine Negative ng/ml (<300)
[2023-03-18 14:52] LABS: Opiate Screen,Urine Positive ng/ml (<300)
[2023-03-18 14:53] LABS: Phencyclidine Screen,Urine Negative ng/ml (<25)
[2023-03-18 15:08] LABS: Methadone Screen,Urine Negative ng/ml (<300)
== END ==
PROVIDERS: PCP Emergency Medicine; Visit Provider Emergency Medicine
DX: M54.16 Radiculopathy, lumbar region (principal)
CPT/HCPCS: 80305

== ENCOUNTER → 2023-04-10 13:18 | Outpatient (CLI) | payer MEDICAID, SELFPAY ==
--- NOTE | 2023-04-10 13:27 | CT_ITS ---
FINAL REPORT CLINICAL HISTORY: abnormal CT, cough, hx of breast cancer left side. COMPARISON: CT screen 01/29/2021 FINDINGS: Axial CT images of the chest were obtained with contrast. Coronal reformatted images were also obtained. This study was performed with techniques to keep radiation doses as low as reasonably achievable, (ALARA). Individualized dose reduction techniques using automated exposure control or adjustment of mA and/or KV according to the patient's size were employed. There is no evidence of mediastinal or hilar mass or adenopathy.No axillary mass or adenopathy is identified. There are postoperative changes in left anterior chest wall. On lung window images, no pulmonary mass or dominant pulmonary nodule is identified. There is moderate emphysema. There is stable left apical consolidation favored to represent posttreatment change. There is anterior left lung scarring which is stable and likely posttreatment change. There are mild ground-glass opacities in the left lower lobe which may reflect pneumonia or edema. Limited images of the upper abdomen reveal no mass or localized inflammatory process. IMPRESSION: Mild ground-glass opacities left lower lobe may reflect pneumonia or edema. Stable findings in the left apex and left anterior lung are likely post treatment change. Reviewed, Interpreted and Dictated by Roque Briggs III, MD Transcribed by Adriane Rudolph Authenticated and [facility]
[2023-04-10 13:56] LABS: Blood Urea Nitrogen 13 mg/dl (7-17); Estimated Glomerular Filt Rate 85 ml/min (>60); GFR (African American) 103 ML/MIN (>60)
== END ==
PROVIDERS: PCP Emergency Medicine; Visit Provider Emergency Medicine
DX: R93.89 Abnormal findings on diagnostic imaging of other specified body structures (principal)
CPT/HCPCS: 36415; 71260; 82565; 84520; Q9967

== ENCOUNTER → 2023-04-21 11:35 | Outpatient (CLI) | payer MEDICAID, SELFPAY ==
--- NOTE | 2023-04-21 11:36 | NM_ITS ---
APPROVED REPORT Exam: Nuclear Stress Test Indication: soa..fatigue..highBP..high cholesterol..tobacco use..family hx Patient Location: Outpatient Stress Tech: Rosalva Browning [facility] Tech:Naa Singh TRACI RT(R)(N) Ht: 5 ft 4 in Wt: 122 lbs Bra Size: 32b HR: 69 bpm BP: 136/72 mmHg BSA: 1.59 m2 Rhythm: NSR TID: 1.10 BMI: 20.9 History: soa..fatigue..highBP..high cholesterol..tobacco use..family hx Procedure: Patient received 0.4 mg of intravenous Lexiscan, resting heart rate 69 bpm, resting blood pressure 136/72 mmHg, with Lexiscan maximum heart rate achieved was 81 bpm which is 85 % of the maximum predicted heart rate and blood pressure was 140/66 mmHg. With Lexiscan, patient denied any complaint of chest pain. Cardiac Stress and Resting SPECT Images: Cardiac Stress and Resting SPECT images were obtained using technetium 99m Myoview 31.5 mCi stress and 10.39 mCi at rest. Resting and stress imaging in both supine and prone positions demonstrate a large sized, moderate, fixed perfusion defect in the inferior wall from the base and extending distally towards the inferoapical region. Gated imaging demonstrates mild reduction in global LV systolic function. There is moderate hypokinesis in the basal inferior LV wall. LVEF is calculated at 48%. Conclusion: Large sized, moderate, fixed perfusion defect in the inferior wall from the base and extending distally towards the inferoapical region. There is no evidence of reversible ischemia. Gated imaging demonstrates mild reduction in global LV systolic function. There is moderate hypokinesis in the basal inferior LV wall. LVEF is calculated at 48%. Electronically signed by : Emily Ackerman MD 04/26/2023 22:39:30
--- NOTE | 2023-04-21 16:13 | CA_ITS ---
APPROVED REPORT Exam: Pharmacologic Technologist: Rosalva Browning Ht: 5 ft 4 in Wt: 133 lbs BSA: 1.64 m2 HR: 50 bpm BP: 130/72 mmHg Rhythm: Sinus bradycardia Indications: Shortness of Air Medical History Medications: Omeprazole,,,,, Spiriva,,,,, Aspirin,,,,, Metoprolol,,,,, Gabapentin,,,,, Vitamin D3,,,,, PERCOCET,,,,, ClonAZEPAM,,,,, Vitamin D2,,,,, RoSUVASTATIN,,,,, ANASTROZOLE,,,,, ANora ELlipta,,,,, Stress Test Details Test: LEXISCAN HR Resting HR: 69 bpm Max Heart Rate (APMHR): 160 bpm Max HR Achieved: 81 bpm Target HR (85% APMHR): 136 bpm % of APMHR: 51 Recovery HR: 69 bpm BP Resting BP: 136.0/72.0 mmHg Max BP: 140.0/66.0 mmHg Recovery BP: 128.0/71.0 mmHg ECG Resting ECG: Sinus bradycardia Stress ECG: No significant ST changes Arrhythmia: None Clinical Exercise duration: 04:00 min Highest Stage Achieved: Exercise capacity: 1.0 METs Stress ECG Conclusion Symptoms: Dizziness, headache, nausea, dyspnea Arrhythmias/Ectopy: None ST-T Changes: No significant ST changes Conclusion: Unremarkable Lexiscan stress test. Myoview images are reported separately. Test Summary REST . . . . . . . Resting REST 05:55 . . 69 . 136/ 72 . . Stage 1 . . . . . . . Myoview Injected Stage 1 01:00 . . 77 . . . . Stage 2 01:00 . . 76 . . . . Stage 3 01:00 . . 68 . 125/ 70 . . Stage 4 01:00 . . 66 . 140/ 66 . Stop exercise at 04:00 RECOVERY 01:00 . . 69 . 127/ 69 . . RECOVERY 02:00 . . 69 . 128/ 80 . . RECOVERY 03:00 . . 66 . 118/ 70 . . RECOVERY 03:39 . . 68 . 128/ 71 . . Electronically signed by : Emily Ackerman MD 04/26/2023 22:36:56
== END ==
PROVIDERS: PCP Emergency Medicine; Visit Provider Nurse Practitioner Family
DX: R06.00 Dyspnea, unspecified (principal); R42 Dizziness and giddiness; I25.10 Atherosclerotic heart disease of native coronary artery without angina pectoris; I25.84 Coronary atherosclerosis due to calcified coronary lesion; R60.0 Localized edema; I65.23 Occlusion and stenosis of bilateral carotid arteries; I73.9 Peripheral vascular disease, unspecified; F17.200 Nicotine dependence, unspecified, uncomplicated
CPT/HCPCS: 78452; 93017; 93923; A9502; J2785

== ENCOUNTER → 2023-05-06 14:08 | Outpatient (CLI) | payer MEDICAID, SELFPAY ==
--- NOTE | 2023-05-06 14:26 | CA_ITS ---
FINAL REPORT TECHNIQUE: Color Doppler, duplex Doppler and wilson scale sonography of the bilateral neck arterial vasculature was performed. Velocities were measured in the carotid arteries. Stenosis evaluation based on the validated velocity criteria. CLINICAL HISTORY: jaden/dizziness, smoker FINDINGS: The peak systolic velocity of the right common carotid artery is 93 cm/s. The peak systolic velocity of the right internal carotid artery is 96 cm/s and end diastolic velocity 38 cm/s. A mild to moderate amount of plaque is present. The right external carotid artery is patent. The right vertebral artery is patent with antegrade flow. The peak systolic velocity of the left common carotid artery is 73 cm/s. The peak systolic velocity of the left internal carotid artery is 115 cm/s and end diastolic velocity 38 cm/s. A mild to moderate amount of plaque is present. The left external carotid artery is patent.The left vertebral artery is patent with antegrade flow. IMPRESSION: Less than 50% bilateral carotid stenoses. Bilateral patent vertebral arteries with antegrade flow. If indicated, CTA or MRA could further evaluate. Reviewed, Interpreted and Dictated by Roque Briggs III, MD Transcribed by Kayce Tobias Authenticated and [facility]
--- NOTE | 2023-05-06 14:27 | CA_ITS ---
APPROVED REPORT EXAM: Comprehensive 2D, Doppler, and color-flow Echocardiogram Editor Newspaper: Yi Scott CRT Ht: 5 ft 4 in Wt: 133lbs BSA: 1.64 BP: 119/63 mmHg Indications: Chest Pain, COPD, Shortness of Breath, Peripheral Edema, Hyperlipidemia, Hypertension/HDD, HX Breast ca and mastectomy Left 2018, new breast Ca dx in right possible pre-op R mastectomy 2D Dimensions LVOT 2.02 cm (M/F) 1.5-2.5 LA Volume 8.40 mL LA Volume Index 5.00 mL/m2 (M/F) 16-34 M-Mode Dimensions RVDd 2.47 cm (0.9-2.6) LA Diam 2.35 cm (1.9-4.0) LVDd 4.46 cm (3.5-5.7) Ao Diam 3.34 cm (2.0-3.7) LVDs 3.02 cm (3.5-5.7) IVSd 1.06 cm (0.6-1.1) PWd 0.62 cm (0.6-1.1) EF (Teich) 60.70% FS 32.30% EDV (Teich) 90.50 mL TAPSE 1.54 (<1.7) ESV (Teich) 35.60 mL LV Diastology E Decel Time 230.00 (160-240 msec) E/A Ratio 0.78 MED E' 8.80 (< 7 cm/sec) MED A' 9.70 cm/s E'/MED E' Ratio 5.02 (>14) LAT E' 7.00 (<10 cm/sec) LAT A' 9.30 cm/s E/LAT E' Ratio 6.31 (>14) Aortic Valve AO Peak GR. 9.10 mmHg Mitral Valve MV E Max Kuldeep. 44.00 (40-130 cm/s) MV A Velocity 57.00 (40-130 cm/s) E/A Ratio 0.78 MV Decel. Time 230.00 (160-240 ms) MV PHT 67.00 ms Pulmonary Valve PV Peak Velocity 188.00 (50-150 cm/s) Tricuspid Valve TR P. Velocity 230.00 cm/s RAP Estimate 10.00 mmHg RVSP 31.20 mmHg Left Ventricle The left ventricle is normal size. Left ventricular systolic function is mildly decreased. There is normal left ventricular wall thickness. There is mild global hypokinesis present. Grade I diastolic dysfunction is present. LVEF is 45-50%. Right Ventricle The right ventricle is normal size. The right ventricular systolic function is normal. Atria The left atrium size is normal. The right atrium size is normal. There is no Doppler evidence of interatrial shunt. Aortic Valve The aortic valve is trileaflet. The aortic valve opens well. There is no aortic valvular stenosis. No aortic regurgitation is present. Mitral Valve The mitral valve is normal in structure. No evidence of mitral valve stenosis. Mild mitral regurgitation. Tricuspid Valve The tricuspid valve leaflets are thin and pliable. Mild tricuspid regurgitation. RVSP is 20-25 mmHg. Pulmonic Valve The pulmonary valve is normal in structure. Mild pulmonic regurgitation. Great Vessels The aortic root is normal in size. The ascending aorta is normal in size. IVC is normal in size and collapses >50% with inspiration. Pericardium There is no pericardial effusion. Other Information Study Quality: Adequate Conclusion Mild reduction in LV systolic function (LVEF 45-50%). Mild MR, TR, PI Further evaluation of the etiology of the mildly reduced LV systolic function is recommended by cardiac MRI (cardiomyopathy protocol). Electronically signed by : Emily Ackerman MD 05/06/2023 20:47:03
== END ==
PROVIDERS: PCP Emergency Medicine; Visit Provider Nurse Practitioner Family
DX: R60.0 Localized edema (principal); R06.00 Dyspnea, unspecified; I25.10 Atherosclerotic heart disease of native coronary artery without angina pectoris; I25.84 Coronary atherosclerosis due to calcified coronary lesion; I65.29 Occlusion and stenosis of unspecified carotid artery; I73.9 Peripheral vascular disease, unspecified; R42 Dizziness and giddiness; F17.200 Nicotine dependence, unspecified, uncomplicated; I10 Essential (primary) hypertension
CPT/HCPCS: 93306; 93880

== ENCOUNTER → 2023-05-14 17:51 | Outpatient (CLI) | payer MEDICAID, SELFPAY ==
[2023-05-14 18:00] LABS: Barbiturates Screen,Urine Negative ng/ml (<200)
[2023-05-14 18:01] LABS: Amphetamine/Metha Screen,Urine Negative ng/ml (<1000); Cannabinoid Screen,Urine Negative ng/ml (<50)
[2023-05-14 18:02] LABS: Benzodiazepines Screen,Urine Positive ng/ml (<200)
[2023-05-14 18:07] LABS: Cocaine Screen,Urine Negative ng/ml (<300); Methadone Screen,Urine Negative ng/ml (<300)
[2023-05-14 18:08] LABS: Phencyclidine Screen,Urine Negative ng/ml (<25)
[2023-05-14 18:09] LABS: Opiate Screen,Urine Positive ng/ml (<300)
== END ==
PROVIDERS: PCP Emergency Medicine; Visit Provider Emergency Medicine
DX: G62.9 Polyneuropathy, unspecified (principal); Z79.899 Other long term (current) drug therapy
CPT/HCPCS: 80305

== ENCOUNTER 2023-05-26 08:20 | Day surgery (SDC) | payer MEDICAID, SELFPAY ==
[2023-05-26] VITALS (13 sets, daily range): BP systolic 99–140; BP diastolic 63–76; PULSE 53–62; RESP 11–20; O2SAT 92–98; BMI 22.3
--- NOTE | 2023-05-26 07:11 | IR_ITS ---
APPROVED REPORT Patient Location: Outpatient [employer] Developer: TRACI Baxter RT (R) PROCEDURES Left heart catheterization Left ventriculogram Selective coronary angiogram INDICATION Angina pectoris, High risk abnormal Myoview Informed consent was obtained prior to the procedure. COMPLICATIONS None Estimated Blood Loss: Less than 10 mls TECHNIQUE One percent lidocaine used to anesthetize the right anterior aspect of the wrist. The right radial artery was accessed via the Seldinger technique. A 6 [place] sheath was placed in the right radial artery. 2.5 mg of Verapamil, 800 mcg of nitroglycerin, 1mg Lidocaine and 5000 U Heparin were given through the arterial sheath. The papa catheter was also used to perform left heart catheterization, left ventriculogram and selective coronary angiogram. At the end of the procedure the sheath was removed good hemostasis was achieved using Traclet band, patient was transferred to the postop holding area in stable condition. ANGIOGRAPHIC RESULTS The left main artery Normal The left anterior descending artery Has mild proximal and mid vessel 10% luminal irregularities The circumflex artery Nondominant with 10% luminal irregularities The right coronary artery Large dominant with proximal 30% stenosis in mid vessel 20 to 30% stenoses The [place] ventriculogram reveals Normal 65% The left ventricular end-diastolic pressure 15 mmHg IMPRESSION Mild nonflow limiting coronary artery disease as described above Normal ejection fraction Normal left ventricular end-diastolic pressure PLAN 1. Medical management Electronically signed by : Olvin Moscoso MD 05/26/2023 09:23:30
[2023-05-26 08:52] LABS: Basophils # 0.1 K/mm3 (0-0.2); Eosinophils # 0.3 K/mm3 (0.0-0.4); Eosinophils % 5.4 % (0.1-12.0); Hematocrit 42.3 % (37.0-47.0); Hemoglobin 14.2 g/dL (12.2-16.2); Lymphocytes # 1.7 K/mm3 (0.7-4.5); Lymphocytes % 35.6 % (10-50); Mean Corpuscular HGB Conc 33.5 g/dL (31.8-35.4); Mean Corpuscular Hemoglobin 30.9 pg (27.0-31.2); Mean Corpuscular Volume 92.2 fl (81-99); Mean Platelet Volume 8.5 fl (7.4-10.4); Monocytes # 0.3 K/mm3 (0.1-1.0); Monocytes % 6.1 % (1.7-9.3); Neutrophils # 2.4 K/mm3 (1.8-7.8); Neutrophils % 51.9 % (37.0-80.0); Platelet Count 152 K/mm3 (142-424); Red Blood Count 4.58 M/mm3 (4.20-5.40); Red Cell Distribution Width 14.5 % (11.5-17.5); White Blood Count 4.7 K/mm3 (4.8-10.8)
[2023-05-26 08:54] LABS: Chloride 103 mmol/L (98-107); Potassium 3.8 mmoL/L (3.5-5.1); Sodium 139 mmol/L (136-145)
[2023-05-26 08:57] LABS: Anion Gap 6.8 mEq/L (5-15); Blood Urea Nitrogen 21 mg/dl (7-17); Calcium 8.9 mg/dl (8.4-10.2); Carbon Dioxide 33 mmol/L (22.0-30.0); Creatinine Clearance Estimated 70 mL/min (50-200); Estimated Glomerular Filt Rate 73 ml/min (>60); GFR (African American) 89 ML/MIN (>60); Glucose 89 mg/dl (74-100)
== END 2023-05-26 12:50 | disposition home or self-care (01) ==
PROVIDERS: PCP Emergency Medicine; Visit Provider Internal Medicine
DX: I25.10 Atherosclerotic heart disease of native coronary artery without angina pectoris (principal); F17.210 Nicotine dependence, cigarettes, uncomplicated; I25.84 Coronary atherosclerosis due to calcified coronary lesion; R94.30 Abnormal result of cardiovascular function study, unspecified; Z79.899 Other long term (current) drug therapy
CPT/HCPCS: 80048; 85025; 93458; 99152; C1725; C1769; J1644; Q9967

== ENCOUNTER → 2023-07-04 09:43 | Outpatient (CLI) | payer MEDICAID, SELFPAY ==
[2023-07-05 03:37] LABS: Amphetamine/Metha Screen,Urine Negative ng/ml (<1000); Barbiturates Screen,Urine Negative ng/ml (<200)
[2023-07-05 03:38] LABS: Benzodiazepines Screen,Urine Positive ng/ml (<200)
[2023-07-05 03:40] LABS: Cannabinoid Screen,Urine Negative ng/ml (<50); Methadone Screen,Urine Negative ng/ml (<300)
[2023-07-05 03:41] LABS: Opiate Screen,Urine Positive ng/ml (<300)
[2023-07-05 03:42] LABS: Phencyclidine Screen,Urine Negative ng/ml (<25)
[2023-07-05 04:14] LABS: Cocaine Screen,Urine Negative ng/ml (<300)
== END ==
PROVIDERS: PCP Nurse Practitioner Family; Visit Provider Nurse Practitioner Family
DX: M54.16 Radiculopathy, lumbar region (principal)
CPT/HCPCS: 80305

== ENCOUNTER 2023-08-01 10:13 | Outpatient (CLI) | payer MEDICAID, SELFPAY ==
[2023-08-01 13:58] LABS: Amphetamine/Metha Screen,Urine Negative ng/ml (<1000); Barbiturates Screen,Urine Negative ng/ml (<200); Benzodiazepines Screen,Urine Positive ng/ml (<200); Cannabinoid Screen,Urine Negative ng/ml (<50); Cocaine Screen,Urine Negative ng/ml (<300); Methadone Screen,Urine Negative ng/ml (<300); Opiate Screen,Urine Negative ng/ml (<300); Phencyclidine Screen,Urine Negative ng/ml (<25)
[2023-08-07 13:21] LABS: Gabapentin,Urine >800.0 ug/mL (.)
[2023-08-07 14:12] LABS: Opiates Negative (Cutoff=100)
== END 2023-08-01 23:59 ==
LOC: LAB.DROPOF 08-02 10:14
PROVIDERS: PCP Nurse Practitioner Family; Visit Provider Nurse Practitioner Family
DX: F41.9 Anxiety disorder, unspecified (principal); M54.16 Radiculopathy, lumbar region; Z79.899 Other long term (current) drug therapy
CPT/HCPCS: 80307; 80361; 80365; G0480

== ENCOUNTER 2023-11-11 08:40 | Outpatient (CLI) | payer MEDICAID, SELFPAY ==
--- NOTE | 2023-11-11 08:40 | MR_ITS ---
FINAL REPORT CLINICAL HISTORY: LBP. BILATERAL LEG PAIN, NUMBNESS AND TINGLING. COMPARISON: 01/11/2022 FINDINGS: Multiplanar MR imaging of the lumbar spine was performed without contrast. On the sagittal T2-weighted images, there is abnormal decreased signal throughout the lumbar discs. The vertebrae are of normal height. The vertebral alignment is normal. L1-2: There is no significant canal stenosis or neural foraminal narrowing. L2-3: There is no significant canal stenosis or neural foraminal narrowing. L3-4: A small annular bulge is present, with mild bilateral neural foraminal narrowing. L4-5: A small to moderate annular bulge is present with bilateral facet osteoarthropathy, and mild to moderate bilateral neural foraminal narrowing. L5-S1: There is a small right paracentral disc protrusion, with mild canal stenosis and mild to moderate right, mild left neural foraminal narrowing. IMPRESSION: Multilevel degenerative changes present, most prominent at the L4-5 and L5-S1 levels. Reviewed, Interpreted and Dictated by Blaze Cullen MD Transcribed by Clarita Turcios Authenticated and [facility]
== END 2023-11-11 23:59 | disposition home or self-care (01) ==
LOC: RAD 08:40
PROVIDERS: PCP Nurse Practitioner Family; Visit Provider Nurse Practitioner Family
DX: M48.061 Spinal stenosis, lumbar region without neurogenic claudication (principal); M47.816 Spondylosis without myelopathy or radiculopathy, lumbar region; M54.16 Radiculopathy, lumbar region
CPT/HCPCS: 72148; 76376

== ENCOUNTER 2023-11-19 18:00 | Outpatient (CLI) | payer MEDICAID, SELFPAY ==
[2023-11-19 18:50] LABS: Barbiturates Screen,Urine Negative ng/ml (<200)
[2023-11-19 18:51] LABS: Benzodiazepines Screen,Urine Positive ng/ml (<200)
[2023-11-19 18:52] LABS: Amphetamine/Metha Screen,Urine Negative ng/ml (<1000); Cannabinoid Screen,Urine Negative ng/ml (<50)
[2023-11-19 18:53] LABS: Cocaine Screen,Urine Negative ng/ml (<300)
[2023-11-19 18:54] LABS: Methadone Screen,Urine Negative ng/ml (<300); Opiate Screen,Urine Positive ng/ml (<300)
[2023-11-19 18:55] LABS: Phencyclidine Screen,Urine Negative ng/ml (<25)
[2023-11-24 13:09] LABS: Alprazolam Negative (Cutoff=100); Benzodiazepines Positive ng/mL (Cutoff=100); Clonazepam Positive (.); Clonazepam Confirm 160 ng/mL (Cutoff=100); Flurazepam Negative (Cutoff=100); Lorazepam Negative (Cutoff=100); Midazolam Negative (Cutoff=100); Temazepam Negative (Cutoff=100); Triazolam Negative (Cutoff=100)
== END 2023-11-19 23:59 | disposition home or self-care (01) ==
LOC: LAB.DROPOF 11-20 09:22
PROVIDERS: PCP Nurse Practitioner Acute Care; Visit Provider Nurse Practitioner Acute Care
DX: F41.1 Generalized anxiety disorder (principal); M47.816 Spondylosis without myelopathy or radiculopathy, lumbar region; Z79.899 Other long term (current) drug therapy
CPT/HCPCS: 80307; 80346